=== PATIENT | female | born 1955 | race Caucasian/White ===

== ENCOUNTER 2018-06-24 05:31 | Inpatient (IN) | payer BC, MEDICARE ==
[2018-06-24] VITALS (19 sets, daily range): BP systolic 129–178; BP diastolic 62–79
[~2018-06-24] VITALS: Ht 175.3 cm; Wt 79.0 kg
[2018-06-24] MEDS ORDERED: diphenhydrAMINE 25mg capsule PO PRN (06:10)
[2018-06-24] MEDS ORDERED: LIDOcaine/PRILOcaine 5gm cream TP ONE (06:10)
[2018-06-24] MEDS ORDERED: normal saline 1000ml 1,000 ML IV SCH (06:10)
[2018-06-24] MEDS ORDERED: LORazepam 0.5 MG tablet PO PRN (06:10)
[2018-06-24] MEDS ORDERED: iohexol 350MG/ML 100ml bottle IV ONE (06:14)
[2018-06-24] MEDS ORDERED: LIDOcaine 1% (10mg/ml)w/preservative injection 20ml MDV ONE (06:14)
[2018-06-24] MEDS ORDERED: ROSU40TA PO (06:29)
[2018-06-24] MEDS ORDERED: LEVO75TA PO (06:29)
[2018-06-24] MEDS ORDERED: CITA20TA19 PO (06:29)
[2018-06-24] MEDS ORDERED: GLIP5TAB26 PO (06:29)
[2018-06-24] MEDS ORDERED: ASPI-1265 PO (06:29)
[2018-06-24] MEDS ORDERED: CARV3.122 PO (06:29)
[2018-06-24] MEDS ORDERED: CYA500T PO (06:29)
[2018-06-24] MEDS ORDERED: BIOT1TAB7 PO (06:29)
[2018-06-24] MEDS ORDERED: FURO-150 PO (06:29)
[2018-06-24] MEDS ORDERED: NITR0.4T51 SL (06:29)
[2018-06-24] MEDS ORDERED: INSU100V12 SQ (06:29)
[2018-06-24] MEDS ORDERED: ALPR-624 PO (06:29)
[2018-06-24] MEDS ORDERED: CLOP75TA15 PO (06:29)
[2018-06-24] MEDS ORDERED: OMEG1CAP2 PO (06:29)
[2018-06-24] MEDS ORDERED: midazolam 2 mg/2 ml injection ONE ×2 (06:31→06:37)
[2018-06-24] MEDS ORDERED: verapamil 2.5 mg/ml inj IV ONE (06:31)
[2018-06-24] MEDS ORDERED: nitroGLYCERIN-Tridil 50MG/D5W 250 ML IV ONE (06:31)
[2018-06-24] MEDS ORDERED: fentaNYL/PF 50MCG/1 ML 2ML syringe ONE (06:31)
[2018-06-24] MEDS ORDERED: heparin 1,000unit/ml 10ml vial 10 ML ONE (06:32)
[2018-06-24] MEDS ORDERED: proCHLORperazine 10 MG/2 ml inj IV PRN (07:25)
[2018-06-24] MEDS ORDERED: OXAZEpam 15mg capsule PO PRN (07:25)
[2018-06-24] MEDS ORDERED: ondansetron/PF 4mg/2ml inj IV PRN (07:25)
[2018-06-24] MEDS ORDERED: HYDROcodone/acetaminophen 10/325mg tab PO PRN (07:25)
[2018-06-24] MEDS ORDERED: HYDROcodone/acetaminophen 5mg/325mg tablet PO PRN ×2 (07:25→17:05)
[2018-06-24] MEDS ORDERED: nitroGLYCERIN 0.4mg SUBLingual tab SL PRN (07:30)
[2018-06-24] MEDS ORDERED: ALPRAZolam 0.5mg tablet PO PRN (07:30)
[2018-06-24] MEDS ORDERED: cyanocobalamin 500mcg tablet PO SCH (08:00)
[2018-06-24] MEDS ORDERED: non-formulary drug (Omega-3 Fatty Acids/Fish Oil (Fish Oil 1,000 mg Capsule) 1 CAP) PO SCH (08:00)
[2018-06-24] MEDS ORDERED: glimepiride 1 MG tablet PO SCH (08:00)
[2018-06-24] MEDS ORDERED: citalopram 20mg tablet PO SCH (08:00)
[2018-06-24] MEDS: carVEDilol 3.125mg tablet PO SCH ×2 (08:00→21:31)
[2018-06-24] MEDS ORDERED: furosemide 20MG tablet PO SCH (08:00)
[2018-06-24] MEDS ORDERED: aspirin 81mg tab.chew PO SCH (08:00)
[2018-06-24] MEDS ORDERED: acetaminophen 325mg tablet PO PRN (11:35)
[2018-06-24] MEDS ORDERED: MESSAGE TO NURSING PO ONE ×5 (17:00→17:22)
[2018-06-24] MEDS ORDERED: dextrose 50%-water 50ml dispensing syringe IV PRN (17:00)
[2018-06-24] MEDS ORDERED: insulin Lispro (HumaLOG) vial - multi-dose SQ SCH (18:00)
[2018-06-24] MEDS ORDERED: mupirocin 2% nasal ointment 1gm UD NS SCH (20:00)
[2018-06-24] MEDS ORDERED: metoprolol tartrate 12.5mg (1/2 tablet) PO SCH (20:00)
[2018-06-24 20:35] LABS: HEMATOCRIT 40.2 % (35.0-45.0); HEMOGLOBIN 13.3 g/dl (12.0-16.0); MEAN CORPUSCULAR HEMOGLOBIN 29.7 PG (27.0-31.0); MEAN CORPUSCULAR HGB CONC 33.2 % (33.0-36.5); MEAN CORPUSCULAR VOLUME 89.4 FL (78-98); MEAN PLATELET VOLUME 8.6 FL (7.4-10.4); PLATELET COUNT 181 X10'3 (140-440); RED BLOOD COUNT 4.49 X10'6 (4.20-5.60); RED CELL DISTRIBUTION WIDTH 13.8 % (11.5-14.5); WHITE BLOOD COUNT 6.6 X10'3 (4.5-11.0)
[2018-06-24 20:37] LABS: ANION GAP 7 (8-16); BLOOD UREA NITROGEN 17 MG/DL (7-18); BUN/CREATININE RATIO 13.5 (6.6-38.0); CALCIUM 8.5 MG/DL (8.5-10.1); CHLORIDE 102 MMOL/L (99-107); CREATININE 1.26 MG/DL (0.40-0.90); GLUCOSE 241 MG/DL (70-104); SODIUM 141 MMOL/L (135-145); eGFR 43 ML/MIN
[2018-06-24 20:53] LABS: HEMOGLOBIN A1C 8.6 % (4.5-6.2)
[2018-06-24 20:55] LABS: INR 1.1 INR; PARTIAL THROMBOPLASTIN TIME 24 SECONDS (22-32)
[2018-06-24] MEDS ORDERED: insulin glargine (Lantus) pen - multi-dose SQ SCH (21:00)
[2018-06-24] MEDS ORDERED: atorvastatin 20mg tablet PO SCH (21:00)
[2018-06-24] MEDS ORDERED: insulin glargine (Lantus) pen - multi-dose SQ ONE (21:00)
[2018-06-24] MEDS ORDERED: potassium Cl 20 mEq SR tablet PO STA (21:01)
[2018-06-24] MEDS: levoTHYROXINE 75mcg tablet PO SCH (21:52)
[2018-06-24 23:01] LABS: ABG HCO3 30.1 mmol/L (22.0-26.0); ABG OXYGEN SATURATION 95.5 % (95-98); ABG PCO2 (T) 45.8 mmHg (32.0-45.0); ABG PH (T) 7.435 (7.350-7.450); ABG PO2 (T) 76.3 mmHg (83-108); ALLEN'S TEST Positive; FCOHb 0.1 % (0.5-1.5); FMetHb 0.2 % (0.3-1.12); FO2Hb 95.2 % (94-100); RESPIRATORY RATE (OBSERVED) 16 b/min; TOTAL HEMOGLOBIN 13.7 G/dl (12.0-16.0)
[2018-06-24 23:13] LABS: CLARITY,URINE CLEAR (Clear); COLOR,URINE YELLOW (Yellow); GLUCOSE, URINE 500 mg/dl (Neg); KETONES,URINE NEGATIVE (Neg); LEUKOCYTE ESTERASE ,URINE NEGATIVE (Neg); NITRITES, URINE NEGATIVE (Neg); OCCULT BLOOD,URINE NEGATIVE (Neg); PROTEIN,URINE NEGATIVE (Neg); UROBILINOGEN,URINE 0.2 E.U/dL (0.2-1.0)
[2018-06-24 23:50] LABS: UA COLLECTION TYPE NON-SPECIFIED
[2018-06-25] VITALS (17 sets, daily range): BP systolic 95–141; BP diastolic 41–67
[2018-06-25] MEDS ORDERED: cefazolin/dext.iso 2gm/100ml 100 ML IV ONE (04:30)
[2018-06-25] MEDS ORDERED: vancomycin/NS 1 GM ADD-VANTAGE 250 ML IV ONE (05:30)
[2018-06-25] MEDS ORDERED: cefazolin/dext.iso 2gm/50ml 50 ML IV ONE (05:30)
[2018-06-25] MEDS ORDERED: insulin regular, human inj. 100 UNITS in normal saline 100ml IV soln 100 ML IV SCH ×2 (05:30)
[2018-06-25] MEDS ORDERED: LORazepam 2 mg/ml vial IV ONE (06:00)
[2018-06-25] MEDS ORDERED: famotidine 20mg tablet PO ONE (06:00)
[2018-06-25 06:01] LABS: BASOPHILS % (AUTO) 0.4 % (0-1); EOSINOPHILS # (AUTO) 0.2 X10'3 (0-0.9); EOSINOPHILS % (AUTO) 2.6 % (0-6); HEMATOCRIT 40.7 % (35.0-45.0); HEMOGLOBIN 13.5 g/dl (12.0-16.0); LYMPHOCYTES # (AUTO) 3.1 X10'3 (1.1-4.8); LYMPHOCYTES % (AUTO) 40.1 % (21-51); MEAN CORPUSCULAR HEMOGLOBIN 29.6 PG (27.0-31.0); MEAN CORPUSCULAR HGB CONC 33.2 % (33.0-36.5); MEAN CORPUSCULAR VOLUME 89.2 FL (78-98); MEAN PLATELET VOLUME 8.7 FL (7.4-10.4); MONOCYTES # (AUTO) 0.6 X10'3 (0-0.9); MONOCYTES % (AUTO) 7.3 % (2-12); NEUTROPHILS # (AUTO) 3.9 X10'3 (1.8-7.7); NEUTROPHILS % (AUTO) 49.6 % (42-75); PLATELET COUNT 175 X10'3 (140-440); RED BLOOD COUNT 4.56 X10'6 (4.20-5.60); RED CELL DISTRIBUTION WIDTH 13.9 % (11.5-14.5); WHITE BLOOD COUNT 7.8 X10'3 (4.5-11.0)
[2018-06-25] MEDS ORDERED: heparin 10,000 units/1 ML INJ IR ONE ×2 (06:15→07:00)
[2018-06-25 06:18] LABS: INR 1.1 INR; PROTHROMBIN TIME 10.8 SECONDS (9.0-12.0)
[2018-06-25 06:26] LABS: ANION GAP 3 (8-16); BLOOD UREA NITROGEN 14 MG/DL (7-18); BUN/CREATININE RATIO 17.1 (6.6-38.0); CALCIUM 8.5 MG/DL (8.5-10.1); CHLORIDE 107 MMOL/L (99-107); CREATININE 0.82 MG/DL (0.40-0.90); GLUCOSE 216 MG/DL (70-104); POTASSIUM 4.1 MMOL/L (3.5-5.1); SODIUM 142 MMOL/L (135-145); TOTAL CARBON DIOXIDE 31.6 MMOL/L (24-32); eGFR 70 ML/MIN
[2018-06-25] MEDS ORDERED: nitroGLYCERIN in D5W 50mg/250ml (Tridil) infusion IV ONE (06:50)
[2018-06-25] MEDS ORDERED: aminocaproic acid 250 MG/1 ML inj. ONE ×2 (06:50→09:00)
[2018-06-25] MEDS ORDERED: SUFENTANIL CITRATE 50 MCG/ML 2ml ampule IV ONE (06:54)
[2018-06-25] MEDS ORDERED: LORazepam 2 mg/ml vial ONE (06:57)
[2018-06-25] MEDS ORDERED: papaverine 30 mg/ml 2ml inj. IA ONE (07:00)
[2018-06-25] MEDS ORDERED: pancuronium br 1mg/ml inj IV ONE (07:00)
[2018-06-25] MEDS ORDERED: rocuronium 10mg/ml inj IV ONE (07:00)
[2018-06-25] MEDS ORDERED: LIDOcaine 2% (20mg/ml) 5ml vial ONE (07:00)
[2018-06-25 07:51] LABS: ABG BASE EXCESS 1.6 mmol/L (-2.0-3.0); ABG HCO3 25.3 mmol/L (22.0-26.0); ABG OXYGEN SATURATION 99.2 % (95-98); ABG PCO2 36.7 mmHg (35.0-45.0); ABG PH 7.457 (7.350-7.450); ABG PO2 198.6 mmHg (60.0-100.0); CL (ABG) 108 mmol/L (99-107); FCOHb 0.5 % (0.5-1.5); FMetHb 0.2 % (0.3-1.12); FO2Hb 98.5 % (94-100); GLUCOSE (ABG) 194 mg/dl (70-105); IONIZED CA (ABG) 1.12 mmol/L (1.03-1.32); K (ABG) 3.8 mmol/L (3.3-5.1); NA (ABG) 136 mmol/L (135-145); TOTAL HEMOGLOBIN 12.4 G/dl (12.0-16.0)
[2018-06-25] MEDS: levoTHYROXINE 75mcg tablet PO SCH (08:00)
[2018-06-25 08:35] LABS: PATIENT WEIGHT 74.0k KG
[2018-06-25 08:36] LABS: ACT @ 1.70 U 323 SEC (193-297); ACT @ 2.84 U 435 SEC (260-420); BASELINE ACT 129 SEC (101-148)
[2018-06-25 08:41] LABS: ABG BASE EXCESS 2.5 mmol/L (-2.0-3.0); ABG HCO3 26.8 mmol/L (22.0-26.0); ABG PCO2 40.3 mmHg (35.0-45.0); ABG PH 7.441 (7.350-7.450); ABG PO2 566.4 mmHg (60.0-100.0); CL (ABG) 105 mmol/L (99-107); FCOHb 0.2 % (0.5-1.5); FMetHb 0.4 % (0.3-1.12); FO2Hb 98.4 % (94-100); GLUCOSE (ABG) 111 mg/dl (70-105); IONIZED CA (ABG) 0.93 mmol/L (1.03-1.32); K (ABG) 3.8 mmol/L (3.3-5.1); NA (ABG) 135 mmol/L (135-145); TOTAL HEMOGLOBIN 10.3 G/dl (12.0-16.0)
[2018-06-25] MEDS ORDERED: insulin Lispro (HumaLOG) vial - multi-dose SQ SCH (09:00)
[2018-06-25] MEDS ORDERED: magnesium sulf 1 GM/2 ML ONE (09:00)
[2018-06-25] MEDS ORDERED: LIDOcaine 2% (20 mg/ml) 5ml cardiac syringe ONE (09:00)
[2018-06-25] MEDS ORDERED: albumin (human) 25% 100 ML IV solution IV ONE (09:00)
[2018-06-25] MEDS ORDERED: heparin 1,000 units/ml 10ml inj ONE ×2 (09:00)
[2018-06-25] MEDS ORDERED: papaverine 30 mg/ml 2ml inj. ONE (09:00)
[2018-06-25] MEDS ORDERED: potassium Cl 2 mEq/ml inj IV ONE (09:00)
[2018-06-25] MEDS ORDERED: phenylephrine 10mg/ml inj. ONE (09:00)
[2018-06-25] MEDS ORDERED: methylPREDNISolone sod succ 1000mg vial ONE (09:00)
[2018-06-25] MEDS ORDERED: heparin 10,000 units/1 ML INJ ONE (09:00)
[2018-06-25] MEDS ORDERED: sodium bicarbonate (8.4%) 1 mEq/ml syringe ONE (09:00)
[2018-06-25] MEDS ORDERED: calcium chloride 100 MG/1 ML inj IV ONE (09:00)
[2018-06-25 09:11] LABS: ABG BASE EXCESS VENOUS 2.1 mmol/L; ABG HCO3 VENOUS 26.6 mmol/L; ABG PCO2 VENOUS 40.8 mmHg; ABG PO2 VENOUS 41.4 mmHg; CL (ABG) 108 mmol/L (99-107); FCOHb VENOUS 0.3 %; FHHb VENOUS 17.7 %; FMetHb VENOUS 0.4 %; FO2Hb VENOUS 81.6 %; GLUCOSE (ABG) 99 mg/dl (70-105); IONIZED CA (ABG) 0.96 mmol/L (1.03-1.32); K (ABG) 4.8 mmol/L (3.3-5.1); NA (ABG) 136 mmol/L (135-145); TOTAL HEMOGLOBIN 9.3 G/dl (12.0-16.0)
[2018-06-25 10:05] LABS: ABG HCO3 24.4 mmol/L (22.0-26.0); ABG OXYGEN SATURATION 98.9 % (95-98); ABG PCO2 33.7 mmHg (35.0-45.0); ABG PH 7.477 (7.350-7.450); CL (ABG) 110 mmol/L (99-107); FCOHb 0.3 % (0.5-1.5); FMetHb 0.7 % (0.3-1.12); FO2Hb 97.9 % (94-100); GLUCOSE (ABG) 89 mg/dl (70-105); IONIZED CA (ABG) 1.17 mmol/L (1.03-1.32); K (ABG) 4.1 mmol/L (3.3-5.1); NA (ABG) 136 mmol/L (135-145); TOTAL HEMOGLOBIN 8.6 G/dl (12.0-16.0)
[2018-06-25] MEDS ORDERED: nitroGLYCERIN-Tridil 50MG/D5W 250 ML IV PRN (10:41)
[2018-06-25] MEDS: sodium chloride 0.45% 1,000 ML IV SCH (10:41)
[2018-06-25] MEDS ORDERED: DOPamine 400mg/D5W 250ml 250 ML IV PRN (10:41)
[2018-06-25 10:42] LABS: BASOPHILS % (AUTO) 0.1 % (0-1); EOSINOPHILS # (AUTO) 0.1 X10'3 (0-0.9); EOSINOPHILS % (AUTO) 1.7 % (0-6); HEMATOCRIT 28.2 % (35.0-45.0); HEMOGLOBIN 9.6 g/dl (12.0-16.0); LYMPHOCYTES % (AUTO) 13.5 % (21-51); MEAN CORPUSCULAR HEMOGLOBIN 30.1 PG (27.0-31.0); MEAN CORPUSCULAR VOLUME 88.5 FL (78-98); MONOCYTES # (AUTO) 0.4 X10'3 (0-0.9); MONOCYTES % (AUTO) 4.9 % (2-12); NEUTROPHILS # (AUTO) 6.1 X10'3 (1.8-7.7); NEUTROPHILS % (AUTO) 79.8 % (42-75); PLATELET COUNT 94 X10'3 (140-440); RED BLOOD COUNT 3.18 X10'6 (4.20-5.60); RED CELL DISTRIBUTION WIDTH 13.6 % (11.5-14.5); WHITE BLOOD COUNT 7.7 X10'3 (4.5-11.0)
[2018-06-25] MEDS: insulin regular, human inj. 100 UNITS in normal saline 100ml IV soln 100 ML IV SCH ×4 (10:45→21:05)
[2018-06-25] MEDS ORDERED: sodium phosphate inj. 15 MMOL in dextrose 5%-water 150 ML IV PRN (10:45)
[2018-06-25] MEDS ORDERED: magnesium 4gm in 100ml NS 100 ML IV PRN (10:45)
[2018-06-25] MEDS ORDERED: morphine 4 MG/ML inj SYRINge IV PRN (10:45)
[2018-06-25] MEDS ORDERED: dextrose 50%-water 50ml dispensing syringe IV PRN (10:45)
[2018-06-25] MEDS ORDERED: Neutra Phos packet PO PRN (10:45)
[2018-06-25] MEDS ORDERED: normal saline 250ml IV soln 250 ML IV PRN (10:45)
[2018-06-25] MEDS ORDERED: sodium phosphate inj. 30 MMOL in dextrose 5%-water 250 ML IV PRN (10:45)
[2018-06-25] MEDS ORDERED: pantoprazole 40 MG vial IV ONE (10:45)
[2018-06-25] MEDS ORDERED: metoclopramide 5 mg/ml inj IV PRN (10:45)
[2018-06-25] MEDS ORDERED: potassium Cl 20mEq/100mL bag 100 ML IV PRN ×2 (10:45)
[2018-06-25] MEDS ORDERED: magnesium hydroxide 30ml (MOM) UD suspension PO PRN (10:45)
[2018-06-25 10:56] LABS: ALANINE AMINOTRANSFERASE 20 U/L (12-78); ALBUMIN 2.3 G/DL (3.4-5.0); ALBUMIN/GLOBULIN RATIO 1.3 (1.1-1.5); ALKALINE PHOSPHATASE 38 IU/L (46-116); ANION GAP 8 (8-16); ASPARTATE AMINO TRANSFERASE 35 U/L (10-37); BILIRUBIN,TOTAL 0.5 MG/DL (0.1-1.0); BLOOD UREA NITROGEN 11 MG/DL (7-18); BUN/CREATININE RATIO 14.5 (6.6-38.0); CALCIUM 7.9 MG/DL (8.5-10.1); CHLORIDE 110 MMOL/L (99-107); CREATININE 0.76 MG/DL (0.40-0.90); GLUCOSE 131 MG/DL (70-104); POTASSIUM 4.2 MMOL/L (3.5-5.1); SODIUM 144 MMOL/L (135-145); TOTAL PROTEIN 4.1 G/DL (6.4-8.2); eGFR 76 ML/MIN
[2018-06-25] MEDS ORDERED: albuterol 2.5 MG/3 ML nebule NEB SCH (11:00)
[2018-06-25 11:09] LABS: INR 1.4 INR; PARTIAL THROMBOPLASTIN TIME 30 SECONDS (22-32); PROTHROMBIN TIME 14.1 SECONDS (9.0-12.0)
[2018-06-25 11:10] LABS: ABG BASE EXCESS 0.8 mmol/L (-2.0-3.0); ABG HCO3 24.3 mmol/L (22.0-26.0); ABG OXYGEN SATURATION 98.4 % (95-98); ABG PCO2 (T) 34.1 mmHg (32.0-45.0); ABG PH (T) 7.469 (7.350-7.450); ABG PO2 (T) 171.4 mmHg (83-108); FCOHb 0.2 % (0.5-1.5); FMetHb 0.3 % (0.3-1.12); FO2Hb 97.9 % (94-100); MINUTE VOLUME 7 L/min; PATIENT TEMPERATURE 36.6; PEEP 5 cm H2O; RESPIRATORY RATE 12 b/min; RESPIRATORY RATE (OBSERVED) 12 b/min; TIDAL VOLUME 500 mL; TOTAL HEMOGLOBIN 10.7 G/dl (12.0-16.0)
[2018-06-25] MEDS: albumin (Human) 5% 250ml 250 ML IV PRN ×3 (11:23→15:16)
[2018-06-25] MEDS: niCARDipine-NS 40mg/200ml IVPB 200 ML IV PRN ×2 (11:27→13:47)
[2018-06-25] MEDS ORDERED: isoflurane 100ml inhalation liquid IH ONE (11:30)
[2018-06-25] MEDS ORDERED: midazolam 2 mg/2 ml injection ONE (11:45)
[2018-06-25] MEDS ORDERED: NORMAL SALINE IV ONE (11:45)
[2018-06-25] MEDS ORDERED: DESMOPRESSIN IV ONE (11:45)
[2018-06-25] MEDS ORDERED: fentaNYL /PF 50mcg/ml 5ml ampule ONE (11:46)
[2018-06-25 12:15] LABS: ABG BASE EXCESS 0.7 mmol/L (-2.0-3.0); ABG HCO3 25.5 mmol/L (22.0-26.0); ABG OXYGEN SATURATION 99.7 % (95-98); ABG PH 7.402 (7.350-7.450); ABG PO2 253.8 mmHg (60.0-100.0); CL (ABG) 114 mmol/L (99-107); FMetHb 0.3 % (0.3-1.12); FO2Hb 98.4 % (94-100); GLUCOSE (ABG) 243 mg/dl (70-105); IONIZED CA (ABG) 1.02 mmol/L (1.03-1.32); K (ABG) 3.6 mmol/L (3.3-5.1); NA (ABG) 139 mmol/L (135-145); TOTAL HEMOGLOBIN 8.1 G/dl (12.0-16.0)
[2018-06-25] MEDS: insulin Lispro (HumaLOG) vial - multi-dose SQ SCH ×2 (13:00→18:00)
[2018-06-25 13:31] LABS: ACTIVATED CLOTTING TIME 147 SEC (101-148)
[2018-06-25] MEDS: morphine 4 MG/ML inj SYRINge IV PRN ×4 (13:37→22:10)
[2018-06-25 13:38] LABS: BASOPHILS % (AUTO) 0 % (0-1); EOSINOPHILS # (AUTO) 0.1 X10'3 (0-0.9); LYMPHOCYTES # (AUTO) 0.8 X10'3 (1.1-4.8); LYMPHOCYTES % (AUTO) 8.4 % (21-51); MEAN CORPUSCULAR HEMOGLOBIN 30.5 PG (27.0-31.0); MEAN CORPUSCULAR HGB CONC 34.2 % (33.0-36.5); MEAN CORPUSCULAR VOLUME 89.1 FL (78-98); MEAN PLATELET VOLUME 8.2 FL (7.4-10.4); MONOCYTES # (AUTO) 0.3 X10'3 (0-0.9); MONOCYTES % (AUTO) 3.3 % (2-12); NEUTROPHILS # (AUTO) 7.9 X10'3 (1.8-7.7); NEUTROPHILS % (AUTO) 87.3 % (42-75); PLATELET COUNT 84 X10'3 (140-440); RED BLOOD COUNT 2.25 X10'6 (4.20-5.60); RED CELL DISTRIBUTION WIDTH 13.4 % (11.5-14.5); WHITE BLOOD COUNT 9.1 X10'3 (4.5-11.0)
[2018-06-25 13:51] LABS: HEMOGLOBIN 6.9 g/dl (12.0-16.0)
[2018-06-25 13:55] LABS: INR 1.3 INR; PARTIAL THROMBOPLASTIN TIME 27 SECONDS (22-32); PROTHROMBIN TIME 12.7 SECONDS (9.0-12.0)
[2018-06-25 14:00] LABS: ALANINE AMINOTRANSFERASE 19 U/L (12-78); ALBUMIN 2.6 G/DL (3.4-5.0); ALBUMIN/GLOBULIN RATIO 1.5 (1.1-1.5); ALKALINE PHOSPHATASE 32 IU/L (46-116); ANION GAP 7 (8-16); ASPARTATE AMINO TRANSFERASE 28 U/L (10-37); BILIRUBIN,TOTAL 0.6 MG/DL (0.1-1.0); BLOOD UREA NITROGEN 11 MG/DL (7-18); BUN/CREATININE RATIO 13.9 (6.6-38.0); CALCIUM 7.4 MG/DL (8.5-10.1); CHLORIDE 114 MMOL/L (99-107); CREATININE 0.79 MG/DL (0.40-0.90); GLUCOSE 194 MG/DL (70-104); MAGNESIUM 2.3 MG/DL (1.5-2.4); POTASSIUM 3.1 MMOL/L (3.5-5.1); SODIUM 147 MMOL/L (135-145); TOTAL CARBON DIOXIDE 25.6 MMOL/L (24-32); TOTAL PROTEIN 4.3 G/DL (6.4-8.2); eGFR 73 ML/MIN
[2018-06-25] MEDS ORDERED: potassium phosphate inj 30 MMOL in dextrose 5%-water 250 ML IV PRN (14:11)
[2018-06-25] MEDS ORDERED: potassium phosphate inj 15 MMOL in dextrose 5%-water 150 ML IV PRN (14:11)
[2018-06-25] MEDS: ceFAZolin 1GM/D5W- ADD-VANTAGE 50 ML IV SCH ×2 (16:51→23:11)
[2018-06-25] MEDS: docusate sod 100mg capsule PO SCH (18:39)
[2018-06-25] MEDS: vancomycin/NS 1 GM ADD-VANTAGE 250 ML IV SCH (19:39)
[2018-06-25] MEDS: mupirocin 2% nasal ointment 1gm UD NS SCH (19:39)
[2018-06-25 19:45] LABS: BASOPHILS % (AUTO) 0 % (0-1); EOSINOPHILS # (AUTO) 0.1 X10'3 (0-0.9); HEMOGLOBIN 7.4 g/dl (12.0-16.0); LYMPHOCYTES # (AUTO) 0.7 X10'3 (1.1-4.8); LYMPHOCYTES % (AUTO) 5.6 % (21-51); MEAN CORPUSCULAR HEMOGLOBIN 30.1 PG (27.0-31.0); MEAN CORPUSCULAR VOLUME 88.6 FL (78-98); MEAN PLATELET VOLUME 8.4 FL (7.4-10.4); MONOCYTES # (AUTO) 0.4 X10'3 (0-0.9); MONOCYTES % (AUTO) 2.9 % (2-12); NEUTROPHILS # (AUTO) 11.2 X10'3 (1.8-7.7); NEUTROPHILS % (AUTO) 90.5 % (42-75); PLATELET COUNT 92 X10'3 (140-440); RED BLOOD COUNT 2.47 X10'6 (4.20-5.60); RED CELL DISTRIBUTION WIDTH 14.1 % (11.5-14.5); WHITE BLOOD COUNT 12.3 X10'3 (4.5-11.0)
[2018-06-25 19:53] LABS: ALBUMIN 3.3 G/DL (3.4-5.0); ANION GAP 7 (8-16); BLOOD UREA NITROGEN 12 MG/DL (7-18); CALCIUM 7.9 MG/DL (8.5-10.1); CHLORIDE 114 MMOL/L (99-107); GLUCOSE 148 MG/DL (70-104); MAGNESIUM 2.2 MG/DL (1.5-2.4); PHOSPHORUS 2.6 MG/DL (2.3-4.5); POTASSIUM 3.4 MMOL/L (3.5-5.1); SODIUM 148 MMOL/L (135-145); TOTAL CARBON DIOXIDE 27.1 MMOL/L (24-32); eGFR 72 ML/MIN
[2018-06-25 20:00] LABS: HEMATOCRIT 21.9 % (35.0-45.0)
[2018-06-25] MEDS: magnesium 1gm/100ml D5W IVPB 100 ML IV PRN (21:41)
[2018-06-26] VITALS (24 sets, daily range): BP systolic 120–144; BP diastolic 39–60
[2018-06-26] MEDS: morphine 4 MG/ML inj SYRINge IV PRN ×3 (00:11→02:11)
[2018-06-26 00:20] LABS: BASOPHILS % (AUTO) 0 % (0-1); EOSINOPHILS # (AUTO) 0.2 X10'3 (0-0.9); EOSINOPHILS % (AUTO) 1.7 % (0-6); HEMOGLOBIN 7.1 g/dl (12.0-16.0); LYMPHOCYTES # (AUTO) 0.9 X10'3 (1.1-4.8); LYMPHOCYTES % (AUTO) 7.5 % (21-51); MEAN CORPUSCULAR HEMOGLOBIN 30.1 PG (27.0-31.0); MEAN CORPUSCULAR HGB CONC 33.6 % (33.0-36.5); MEAN CORPUSCULAR VOLUME 89.6 FL (78-98); MEAN PLATELET VOLUME 8.6 FL (7.4-10.4); MONOCYTES # (AUTO) 0.5 X10'3 (0-0.9); NEUTROPHILS # (AUTO) 10.5 X10'3 (1.8-7.7); NEUTROPHILS % (AUTO) 86.8 % (42-75); PLATELET COUNT 93 X10'3 (140-440); RED BLOOD COUNT 2.34 X10'6 (4.20-5.60); RED CELL DISTRIBUTION WIDTH 13.6 % (11.5-14.5); WHITE BLOOD COUNT 12.1 X10'3 (4.5-11.0)
[2018-06-26 00:40] LABS: INR 1.1 INR; PARTIAL THROMBOPLASTIN TIME 23 SECONDS (22-32)
[2018-06-26 00:41] LABS: ALANINE AMINOTRANSFERASE 19 U/L (12-78); ALBUMIN 3.1 G/DL (3.4-5.0); ALBUMIN/GLOBULIN RATIO 1.6 (1.1-1.5); ALKALINE PHOSPHATASE 36 IU/L (46-116); ANION GAP 6 (8-16); ASPARTATE AMINO TRANSFERASE 27 U/L (10-37); BILIRUBIN,TOTAL 0.4 MG/DL (0.1-1.0); BLOOD UREA NITROGEN 11 MG/DL (7-18); BUN/CREATININE RATIO 15.7 (6.6-38.0); CALCIUM 7.9 MG/DL (8.5-10.1); CHLORIDE 112 MMOL/L (99-107); GLUCOSE 119 MG/DL (70-104); MAGNESIUM 2.7 MG/DL (1.5-2.4); PHOSPHORUS 3.4 MG/DL (2.3-4.5); POTASSIUM 3.3 MMOL/L (3.5-5.1); SODIUM 147 MMOL/L (135-145); TOTAL CARBON DIOXIDE 28.9 MMOL/L (24-32); TOTAL PROTEIN 5.1 G/DL (6.4-8.2); eGFR 84 ML/MIN
[2018-06-26] MEDS: potassium Cl 20mEq/100mL bag 100 ML IV PRN ×5 (00:56→08:49)
[2018-06-26 04:55] LABS: ABG HCO3 26.6 mmol/L (22.0-26.0); ABG OXYGEN SATURATION 95.8 % (95-98); ABG PCO2 (T) 48.7 mmHg (32.0-45.0); ABG PH (T) 7.357 (7.350-7.450); ABG PO2 (T) 85.6 mmHg (83-108); FCOHb 0.3 % (0.5-1.5); FMetHb 0.4 % (0.3-1.12); FO2Hb 95.1 % (94-100); MINUTE VOLUME 5 L/min; PATIENT TEMPERATURE 37.4; PEEP 5 cm H2O; RESPIRATORY RATE (OBSERVED) 9 b/min; TOTAL HEMOGLOBIN 7.7 G/dl (12.0-16.0)
[2018-06-26] MEDS ORDERED: furosemide 40mg/4ml inj IV ONE (06:00)
[2018-06-26] MEDS ORDERED: furosemide 40mg/4ml inj ONE (06:05)
[2018-06-26] MEDS ORDERED: atorvastatin 10mg tablet PO SCH (08:00)
[2018-06-26] MEDS ORDERED: aspirin 325mg tablet, delayed-release (Ecotrin) PO SCH (08:00)
[2018-06-26] MEDS ORDERED: metoprolol tartrate 12.5mg (1/2 tablet) PO SCH (08:00)
[2018-06-26] MEDS: vancomycin/NS 1 GM ADD-VANTAGE 250 ML IV SCH ×2 (08:07→19:01)
[2018-06-26] MEDS: ceFAZolin 1GM/D5W- ADD-VANTAGE 50 ML IV SCH ×3 (08:07→23:56)
[2018-06-26] MEDS: ondansetron/PF 4mg/2ml inj IV PRN (08:46)
[2018-06-26] MEDS: insulin Lispro (HumaLOG) vial - multi-dose SQ SCH ×3 (09:00→18:00)
[2018-06-26] MEDS: HYDROcodone/acetaminophen 10/325mg tab PO PRN ×2 (09:57→19:00)
[2018-06-26] MEDS: lisinopril 5mg tablet PO SCH (09:58)
[2018-06-26] MEDS: atorvastatin 20mg tablet PO SCH (09:58)
[2018-06-26] MEDS: docusate sod 100mg capsule PO SCH ×2 (09:58→18:59)
[2018-06-26] MEDS: aspirin 81mg tablet.DR PO SCH (09:58)
[2018-06-26] MEDS: levoTHYROXINE 75mcg tablet PO SCH (09:59)
[2018-06-26] MEDS: mupirocin 2% nasal ointment 1gm UD NS SCH ×2 (09:59→19:09)
[2018-06-26] MEDS: carVEDilol 3.125mg tablet PO SCH ×2 (09:59→18:59)
[2018-06-26] MEDS: insulin regular, human inj. 100 UNITS in normal saline 100ml IV soln 100 ML IV SCH ×2 (18:26)
[2018-06-27] VITALS (28 sets, daily range): BP systolic 100–150; BP diastolic 46–64
[2018-06-27] MEDS: HYDROcodone/acetaminophen 10/325mg tab PO PRN ×3 (00:38→19:04)
[2018-06-27 03:05] LABS: BASOPHILS % (AUTO) 0 % (0-1); EOSINOPHILS % (AUTO) 0 % (0-6); LYMPHOCYTES # (AUTO) 2.4 X10'3 (1.1-4.8); LYMPHOCYTES % (AUTO) 13.3 % (21-51); MEAN CORPUSCULAR HEMOGLOBIN 29.9 PG (27.0-31.0); MEAN CORPUSCULAR HGB CONC 33.4 % (33.0-36.5); MEAN CORPUSCULAR VOLUME 89.6 FL (78-98); MONOCYTES # (AUTO) 1.1 X10'3 (0-0.9); MONOCYTES % (AUTO) 6.4 % (2-12); NEUTROPHILS # (AUTO) 14.3 X10'3 (1.8-7.7); NEUTROPHILS % (AUTO) 80.3 % (42-75); PLATELET COUNT 124 X10'3 (140-440); RED BLOOD COUNT 2.18 X10'6 (4.20-5.60); RED CELL DISTRIBUTION WIDTH 14.2 % (11.5-14.5); WHITE BLOOD COUNT 17.8 X10'3 (4.5-11.0)
[2018-06-27 03:10] LABS: HEMATOCRIT 19.5 % (35.0-45.0); HEMOGLOBIN 6.5 g/dl (12.0-16.0)
[2018-06-27 03:33] LABS: ALBUMIN 2.8 G/DL (3.4-5.0); ANION GAP 7 (8-16); BLOOD UREA NITROGEN 18 MG/DL (7-18); BUN/CREATININE RATIO 21.2 (6.6-38.0); CALCIUM 7.8 MG/DL (8.5-10.1); CHLORIDE 104 MMOL/L (99-107); CREATININE 0.85 MG/DL (0.40-0.90); GLUCOSE 142 MG/DL (70-104); MAGNESIUM 2.3 MG/DL (1.5-2.4); PHOSPHORUS 2.4 MG/DL (2.3-4.5); POTASSIUM 4.1 MMOL/L (3.5-5.1); SODIUM 139 MMOL/L (135-145); TOTAL CARBON DIOXIDE 28.3 MMOL/L (24-32); eGFR 67 ML/MIN
[2018-06-27] MEDS: magnesium 1gm/100ml D5W IVPB 100 ML IV PRN ×2 (05:12→06:13)
[2018-06-27] MEDS: aspirin 81mg tablet.DR PO SCH (08:24)
[2018-06-27] MEDS: docusate sod 100mg capsule PO SCH ×2 (08:24→19:06)
[2018-06-27] MEDS: pantoprazole 40mg Tablet.DR PO SCH (08:24)
[2018-06-27] MEDS: atorvastatin 20mg tablet PO SCH (08:24)
[2018-06-27] MEDS: lisinopril 5mg tablet PO SCH (08:25)
[2018-06-27] MEDS: levoTHYROXINE 75mcg tablet PO SCH (08:25)
[2018-06-27] MEDS: mupirocin 2% nasal ointment 1gm UD NS SCH (08:25)
[2018-06-27] MEDS: carVEDilol 3.125mg tablet PO SCH ×2 (08:25→19:07)
[2018-06-27] MEDS: insulin Lispro (HumaLOG) vial - multi-dose SQ SCH ×6 (09:00→20:38)
[2018-06-27] MEDS: sodium chloride 0.45% 1,000 ML IV SCH (10:41)
[2018-06-27] MEDS ORDERED: glucagon, human recombinant 1mg kit SUBCUT PRN (12:30)
[2018-06-27] MEDS ORDERED: dextrose 50%-water 50ml dispensing syringe IV PRN ×2 (12:30)
[2018-06-27] MEDS ORDERED: MESSAGE TO PHARMACY PO ONE (12:30)
[2018-06-27] MEDS ORDERED: dextrose ORAL solution 15 GM/59 ML bottle PO PRN ×2 (12:30)
[2018-06-27 13:06] LABS: HEMOGLOBIN 7.3 g/dl (12.0-16.0); MEAN CORPUSCULAR HGB CONC 33.7 % (33.0-36.5); MEAN CORPUSCULAR VOLUME 88.9 FL (78-98); PLATELET COUNT 100 X10'3 (140-440); RED BLOOD COUNT 2.44 X10'6 (4.20-5.60)
[2018-06-27 13:09] LABS: HEMATOCRIT 21.7 % (35.0-45.0)
[2018-06-27 13:14] LABS: MAGNESIUM 2.3 MG/DL (1.5-2.4); POTASSIUM 4.6 MMOL/L (3.5-5.1)
[2018-06-27] MEDS: Protein Smoothie (high protein) 240ml (8oz) cup PO SCH (18:00)
[2018-06-27] MEDS: insulin glargine (Lantus) pen - multi-dose SQ SCH (20:38)
[2018-06-28] VITALS (24 sets, daily range): BP systolic 97–156; BP diastolic 44–71
[2018-06-28] MEDS: HYDROcodone/acetaminophen 10/325mg tab PO PRN ×4 (02:08→21:06)
[2018-06-28 02:15] LABS: BASOPHILS % (AUTO) 0.2 % (0-1); EOSINOPHILS % (AUTO) 0 % (0-6); LYMPHOCYTES # (AUTO) 2.3 X10'3 (1.1-4.8); LYMPHOCYTES % (AUTO) 21.3 % (21-51); MEAN CORPUSCULAR HEMOGLOBIN 30.3 PG (27.0-31.0); MEAN CORPUSCULAR HGB CONC 34.1 % (33.0-36.5); MEAN CORPUSCULAR VOLUME 88.9 FL (78-98); MEAN PLATELET VOLUME 8.8 FL (7.4-10.4); MONOCYTES # (AUTO) 0.7 X10'3 (0-0.9); MONOCYTES % (AUTO) 6.8 % (2-12); NEUTROPHILS # (AUTO) 7.6 X10'3 (1.8-7.7); NEUTROPHILS % (AUTO) 71.7 % (42-75); PLATELET COUNT 107 X10'3 (140-440); WHITE BLOOD COUNT 10.6 X10'3 (4.5-11.0)
[2018-06-28 02:21] LABS: HEMATOCRIT 20.5 % (35.0-45.0)
[2018-06-28 02:33] LABS: ALBUMIN 2.4 G/DL (3.4-5.0); ANION GAP 2 (8-16); BLOOD UREA NITROGEN 14 MG/DL (7-18); BUN/CREATININE RATIO 20.6 (6.6-38.0); CALCIUM 7.5 MG/DL (8.5-10.1); CHLORIDE 103 MMOL/L (99-107); CREATININE 0.68 MG/DL (0.40-0.90); GLUCOSE 234 MG/DL (70-104); PHOSPHORUS 1.6 MG/DL (2.3-4.5); POTASSIUM 4.1 MMOL/L (3.5-5.1); SODIUM 136 MMOL/L (135-145); eGFR 87 ML/MIN
[2018-06-28] MEDS ORDERED: NORMAL SALINE IV ONE (03:30)
[2018-06-28] MEDS ORDERED: POTASSIUM CL IV ONE (03:30)
[2018-06-28] MEDS: levoTHYROXINE 75mcg tablet PO SCH (08:03)
[2018-06-28] MEDS: docusate sod 100mg capsule PO SCH ×2 (08:03→19:26)
[2018-06-28] MEDS: atorvastatin 20mg tablet PO SCH (08:03)
[2018-06-28] MEDS: aspirin 81mg tablet.DR PO SCH (08:04)
[2018-06-28] MEDS: Protein Smoothie (high protein) 240ml (8oz) cup PO SCH ×3 (08:04→18:30)
[2018-06-28] MEDS: pantoprazole 40mg Tablet.DR PO SCH (08:04)
[2018-06-28] MEDS: carVEDilol 3.125mg tablet PO SCH ×2 (08:04→19:26)
[2018-06-28] MEDS: insulin Lispro (HumaLOG) vial - multi-dose SQ SCH ×5 (09:12→21:10)
[2018-06-28] MEDS: insulin regular, human inj. 100 UNITS in normal saline 100ml IV soln 100 ML IV SCH ×2 (10:45)
[2018-06-28] MEDS: lactose-reduced food (Ensure High Protein) 237ml bottle PO SCH (13:00)
[2018-06-28] MEDS: insulin glargine (Lantus) pen - multi-dose SQ SCH (21:09)
[2018-06-29] VITALS (14 sets, daily range): BP systolic 111–163; BP diastolic 50–79
[2018-06-29] MEDS: HYDROcodone/acetaminophen 10/325mg tab PO PRN ×2 (04:19→10:44)
[2018-06-29 06:53] LABS: BASOPHILS % (AUTO) 0.2 % (0-1); EOSINOPHILS # (AUTO) 0.2 X10'3 (0-0.9); EOSINOPHILS % (AUTO) 2.9 % (0-6); HEMOGLOBIN 7.7 g/dl (12.0-16.0); LYMPHOCYTES # (AUTO) 1.5 X10'3 (1.1-4.8); LYMPHOCYTES % (AUTO) 18.1 % (21-51); MEAN CORPUSCULAR HEMOGLOBIN 30.5 PG (27.0-31.0); MEAN CORPUSCULAR HGB CONC 33.6 % (33.0-36.5); MEAN CORPUSCULAR VOLUME 90.9 FL (78-98); MEAN PLATELET VOLUME 8.9 FL (7.4-10.4); MONOCYTES # (AUTO) 0.6 X10'3 (0-0.9); MONOCYTES % (AUTO) 6.9 % (2-12); NEUTROPHILS % (AUTO) 71.9 % (42-75); PLATELET COUNT 145 X10'3 (140-440); RED BLOOD COUNT 2.54 X10'6 (4.20-5.60); WHITE BLOOD COUNT 8.4 X10'3 (4.5-11.0)
[2018-06-29 07:04] LABS: ALBUMIN 2.5 G/DL (3.4-5.0); ANION GAP 6 (8-16); BLOOD UREA NITROGEN 14 MG/DL (7-18); BUN/CREATININE RATIO 20.3 (6.6-38.0); CALCIUM 7.6 MG/DL (8.5-10.1); CHLORIDE 102 MMOL/L (99-107); CREATININE 0.69 MG/DL (0.40-0.90); GLUCOSE 265 MG/DL (70-104); MAGNESIUM 1.9 MG/DL (1.5-2.4); PHOSPHORUS 1.9 MG/DL (2.3-4.5); SODIUM 138 MMOL/L (135-145); TOTAL CARBON DIOXIDE 29.8 MMOL/L (24-32); eGFR 85 ML/MIN
[2018-06-29] MEDS ORDERED: magnesium 1gm/100ml D5W IVPB 100 ML IV PRN (07:10)
[2018-06-29] MEDS ORDERED: potassium Cl 20 mEq SR tablet PO PRN ×2 (07:10)
[2018-06-29] MEDS ORDERED: magnesium Cl slow-release 64mg tablet PO PRN (07:10)
[2018-06-29] MEDS ORDERED: potassium Cl 40MEQ/NS 500ml 500 ML IV PRN ×2 (07:10)
[2018-06-29] MEDS ORDERED: magnesium 4gm in 100ml NS 100 ML IV PRN (07:10)
[2018-06-29] MEDS ORDERED: magnesium citrate 296ml oral solution PO ONE (07:50)
[2018-06-29] MEDS: pantoprazole 40mg Tablet.DR PO SCH (07:57)
[2018-06-29] MEDS: lactose-reduced food (Ensure High Protein) 237ml bottle PO SCH ×4 (08:00→23:00)
[2018-06-29] MEDS: K and/or MAG REPLACEMENT MC SCH (08:00)
[2018-06-29] MEDS: Protein Smoothie (high protein) 240ml (8oz) cup PO SCH ×3 (08:00→18:00)
[2018-06-29] MEDS: levoTHYROXINE 75mcg tablet PO SCH (09:11)
[2018-06-29] MEDS: carVEDilol 3.125mg tablet PO SCH ×2 (09:11→21:25)
[2018-06-29] MEDS: potassium Cl 20 mEq SR tablet PO SCH ×2 (09:12→21:25)
[2018-06-29] MEDS: aspirin 81mg tablet.DR PO SCH (09:12)
[2018-06-29] MEDS: atorvastatin 20mg tablet PO SCH (09:12)
[2018-06-29] MEDS: docusate sod 100mg capsule PO SCH ×2 (09:12→20:00)
[2018-06-29] MEDS: magnesium Cl slow-release 64mg tablet PO SCH ×2 (09:12→21:24)
[2018-06-29] MEDS: insulin Lispro (HumaLOG) vial - multi-dose SQ SCH ×3 (09:22→20:13)
[2018-06-29] MEDS: ondansetron/PF 4mg/2ml inj IV PRN ×2 (09:50→20:18)
[2018-06-29] MEDS: acetaminophen 325mg tablet PO PRN ×2 (16:53→22:56)
[2018-06-29] MEDS: citalopram 20mg tablet PO SCH (21:26)
[2018-06-29] MEDS: insulin glargine (Lantus) pen - multi-dose SQ SCH (22:50)
[2018-06-30 02:00] VITALS: BP 125/62
[2018-06-30 06:00] VITALS: BP 156/68
[2018-06-30] MEDS: lactose-reduced food (Ensure High Protein) 237ml bottle PO SCH ×3 (08:00→18:00)
[2018-06-30] MEDS: K and/or MAG REPLACEMENT MC SCH (08:00)
[2018-06-30 08:08] LABS: ALBUMIN 2.5 G/DL (3.4-5.0); ANION GAP 5 (8-16); BLOOD UREA NITROGEN 10 MG/DL (7-18); BUN/CREATININE RATIO 15.9 (6.6-38.0); CALCIUM 8.3 MG/DL (8.5-10.1); CHLORIDE 104 MMOL/L (99-107); CREATININE 0.63 MG/DL (0.40-0.90); GLUCOSE 170 MG/DL (70-104); MAGNESIUM 1.9 MG/DL (1.5-2.4); SODIUM 140 MMOL/L (135-145); TOTAL CARBON DIOXIDE 31.2 MMOL/L (24-32); eGFR > 90 ML/MIN
[2018-06-30 08:26] LABS: BASOPHILS % (AUTO) 0.3 % (0-1); EOSINOPHILS # (AUTO) 0.3 X10'3 (0-0.9); HEMATOCRIT 22.8 % (35.0-45.0); HEMOGLOBIN 7.7 g/dl (12.0-16.0); LYMPHOCYTES # (AUTO) 1.8 X10'3 (1.1-4.8); LYMPHOCYTES % (AUTO) 26.2 % (21-51); MEAN CORPUSCULAR HEMOGLOBIN 30.3 PG (27.0-31.0); MEAN CORPUSCULAR HGB CONC 33.8 % (33.0-36.5); MEAN CORPUSCULAR VOLUME 89.7 FL (78-98); MEAN PLATELET VOLUME 8.6 FL (7.4-10.4); MONOCYTES # (AUTO) 0.6 X10'3 (0-0.9); MONOCYTES % (AUTO) 8.3 % (2-12); NEUTROPHILS # (AUTO) 4.2 X10'3 (1.8-7.7); NEUTROPHILS % (AUTO) 61.2 % (42-75); PLATELET COUNT 179 X10'3 (140-440); RED BLOOD COUNT 2.55 X10'6 (4.20-5.60); RED CELL DISTRIBUTION WIDTH 13.7 % (11.5-14.5); WHITE BLOOD COUNT 6.9 X10'3 (4.5-11.0)
[2018-06-30] MEDS: atorvastatin 20mg tablet PO SCH (08:27)
[2018-06-30] MEDS: aspirin 81mg tablet.DR PO SCH (08:27)
[2018-06-30] MEDS: potassium Cl 20 mEq SR tablet PO SCH ×2 (08:27→20:00)
[2018-06-30] MEDS: docusate sod 100mg capsule PO SCH ×2 (08:27→20:22)
[2018-06-30] MEDS: magnesium Cl slow-release 64mg tablet PO SCH ×2 (08:28→20:21)
[2018-06-30] MEDS: carVEDilol 3.125mg tablet PO SCH ×2 (08:28→20:22)
[2018-06-30] MEDS: levoTHYROXINE 75mcg tablet PO SCH (08:28)
[2018-06-30] MEDS: pantoprazole 40mg Tablet.DR PO SCH (08:28)
[2018-06-30] MEDS: HYDROcodone/acetaminophen 10/325mg tab PO PRN ×2 (08:28→20:22)
[2018-06-30] MEDS: ondansetron/PF 4mg/2ml inj IV PRN ×2 (08:28→20:27)
[2018-06-30] MEDS: Protein Smoothie (high protein) 240ml (8oz) cup PO SCH ×3 (08:29→18:00)
[2018-06-30] MEDS: insulin Lispro (HumaLOG) vial - multi-dose SQ SCH ×2 (09:42→13:12)
[2018-06-30 11:00] VITALS: BP 124/54
[2018-06-30] MEDS: acetaminophen 325mg tablet PO PRN (13:13)
[2018-06-30 15:00] VITALS: BP 116/53
[2018-06-30] MEDS ORDERED: benzocaine/menthol oral lozeng 1 EACH BOX MM PRN (17:15)
[2018-06-30 18:00] VITALS: BP 132/55
[2018-06-30] MEDS: citalopram 20mg tablet PO SCH (20:27)
[2018-06-30] MEDS: insulin glargine (Lantus) pen - multi-dose SQ SCH (21:02)
[2018-06-30 22:00] VITALS: BP 112/52
[2018-07-01 02:00] VITALS: BP 111/56
[2018-07-01] MEDS: ondansetron/PF 4mg/2ml inj IV PRN (05:16)
[2018-07-01] MEDS: acetaminophen 325mg tablet PO PRN ×2 (05:17→16:49)
[2018-07-01 06:00] VITALS: BP 109/54
[2018-07-01 06:50] LABS: BASOPHILS % (AUTO) 0.2 % (0-1); EOSINOPHILS # (AUTO) 0.3 X10'3 (0-0.9); EOSINOPHILS % (AUTO) 5.3 % (0-6); HEMATOCRIT 23.2 % (35.0-45.0); HEMOGLOBIN 7.7 g/dl (12.0-16.0); LYMPHOCYTES # (AUTO) 1.2 X10'3 (1.1-4.8); LYMPHOCYTES % (AUTO) 19.5 % (21-51); MEAN CORPUSCULAR HEMOGLOBIN 30.1 PG (27.0-31.0); MEAN CORPUSCULAR HGB CONC 33.1 % (33.0-36.5); MONOCYTES # (AUTO) 0.6 X10'3 (0-0.9); MONOCYTES % (AUTO) 8.7 % (2-12); NEUTROPHILS # (AUTO) 4.2 X10'3 (1.8-7.7); NEUTROPHILS % (AUTO) 66.3 % (42-75); PLATELET COUNT 210 X10'3 (140-440); RED BLOOD COUNT 2.55 X10'6 (4.20-5.60); RED CELL DISTRIBUTION WIDTH 14.3 % (11.5-14.5); WHITE BLOOD COUNT 6.4 X10'3 (4.5-11.0)
[2018-07-01 07:19] LABS: ALBUMIN 2.3 G/DL (3.4-5.0); ANION GAP 6 (8-16); BLOOD UREA NITROGEN 9 MG/DL (7-18); BUN/CREATININE RATIO 12.5 (6.6-38.0); CALCIUM 8.2 MG/DL (8.5-10.1); CHLORIDE 104 MMOL/L (99-107); CREATININE 0.72 MG/DL (0.40-0.90); GLUCOSE 155 MG/DL (70-104); SODIUM 141 MMOL/L (135-145); TOTAL CARBON DIOXIDE 31.2 MMOL/L (24-32); eGFR 81 ML/MIN
[2018-07-01] MEDS: lactose-reduced food (Ensure High Protein) 237ml bottle PO SCH ×2 (08:00→13:00)
[2018-07-01] MEDS: K and/or MAG REPLACEMENT MC SCH (08:00)
[2018-07-01] MEDS: Protein Smoothie (high protein) 240ml (8oz) cup PO SCH ×2 (08:00→13:00)
[2018-07-01] MEDS: citalopram 20mg tablet PO SCH (08:00)
[2018-07-01] MEDS: magnesium Cl slow-release 64mg tablet PO SCH (08:00)
[2018-07-01] MEDS: potassium Cl 20 mEq SR tablet PO SCH (08:45)
[2018-07-01] MEDS: levoTHYROXINE 75mcg tablet PO SCH (08:46)
[2018-07-01] MEDS: docusate sod 100mg capsule PO SCH (08:46)
[2018-07-01] MEDS: atorvastatin 20mg tablet PO SCH (08:46)
[2018-07-01] MEDS: carVEDilol 3.125mg tablet PO SCH (08:47)
[2018-07-01] MEDS: aspirin 81mg tablet.DR PO SCH (08:47)
[2018-07-01] MEDS: pantoprazole 40mg Tablet.DR PO SCH (09:03)
[2018-07-01] MEDS: insulin Lispro (HumaLOG) vial - multi-dose SQ SCH (09:09)
[2018-07-01 11:00] VITALS: BP 109/54
[2018-07-01] MEDS: HYDROcodone/acetaminophen 10/325mg tab PO PRN (12:29)
[2018-07-01 15:00] VITALS: BP 118/59
== END 2018-07-01 17:15 | DRG 234 ==
LOC: SSTAY O 05:31 → PCU 3S 17:01 → ICU 2S 06-25 09:45 → PCU 3S 06-29 08:05
PROVIDERS: ADMIT Thoracic Surgery (Cardiothoracic Vascular Surgery); ATTEND Thoracic Surgery (Cardiothoracic Vascular Surgery)
PROC: 4A023N7 Measurement of Cardiac Sampling and Pressure, Left Heart, Percutaneous Approach (ICD-10-PCS; 2018-06-24)
PROC: B2111ZZ Fluoroscopy of Multiple Coronary Arteries using Low Osmolar Contrast (ICD-10-PCS; 2018-06-24)
PROC: B2151ZZ Fluoroscopy of Left Heart using Low Osmolar Contrast (ICD-10-PCS; 2018-06-24)
PROC: 021009W Bypass Coronary Artery, One Artery from Aorta with Autologous Venous Tissue, Open Approach (ICD-10-PCS; 2018-06-25)
PROC: 06BQ4ZZ Excision of Left Saphenous Vein, Percutaneous Endoscopic Approach (ICD-10-PCS; 2018-06-25)
PROC: 06BP4ZZ Excision of Right Saphenous Vein, Percutaneous Endoscopic Approach (ICD-10-PCS; 2018-06-25)
PROC: B24BZZ4 Ultrasonography of Heart with Aorta, Transesophageal (ICD-10-PCS; 2018-06-25)
PROC: 5A1221Z Performance of Cardiac Output, Continuous (ICD-10-PCS; 2018-06-25)
PROC: 30233M1 Transfusion of Nonautologous Plasma Cryoprecipitate into Peripheral Vein, Percutaneous Approach (ICD-10-PCS; 2018-06-25)
PROC: B24BZZ4 Ultrasonography of Heart with Aorta, Transesophageal (ICD-10-PCS; 2018-06-25)
PROC: 02HV33Z Insertion of Infusion Device into Superior Vena Cava, Percutaneous Approach (ICD-10-PCS; 2018-06-25)
PROC: 4A133B3 Monitoring of Arterial Pressure, Pulmonary, Percutaneous Approach (ICD-10-PCS; 2018-06-25)
PROC: 02HP32Z Insertion of Monitoring Device into Pulmonary Trunk, Percutaneous Approach (ICD-10-PCS; 2018-06-25)
PROC: 02100Z9 Bypass Coronary Artery, One Artery from Left Internal Mammary, Open Approach (ICD-10-PCS; principal; 2018-06-25 06:50)
PROC: 30233N1 Transfusion of Nonautologous Red Blood Cells into Peripheral Vein, Percutaneous Approach (ICD-10-PCS; 2018-06-27)
DX: I25.118 Atherosclerotic heart disease of native coronary artery with other forms of angina pectoris (principal); D68.9 Coagulation defect, unspecified; R04.89 Hemorrhage from other sites in respiratory passages; E03.9 Hypothyroidism, unspecified; E11.51 Type 2 diabetes mellitus with diabetic peripheral angiopathy without gangrene; E78.00 Pure hypercholesterolemia, unspecified; F41.9 Anxiety disorder, unspecified; I10 Essential (primary) hypertension; I67.9 Cerebrovascular disease, unspecified; I70.1 Atherosclerosis of renal artery; I65.23 Occlusion and stenosis of bilateral carotid arteries; Z79.899 Other long term (current) drug therapy; Z88.6 Allergy status to analgesic agent; Z88.8 Allergy status to other drugs, medicaments and biological substances; Z90.49 Acquired absence of other specified parts of digestive tract; Z79.82 Long term (current) use of aspirin; Z79.01 Long term (current) use of anticoagulants; Z79.890 Hormone replacement therapy; Z79.84 Long term (current) use of oral hypoglycemic drugs; Y92.89 Other specified places as the place of occurrence of the external cause
CPT/HCPCS: 0232T; 93312; 93325; 93458; Z7506; Z7508; 36415; 36600; 71045; 71046; 80048; 80053; 81003; 82330; 82435; 82803; 82947; 82948; 83036; 83735; 84100; 84132; 84295; 84443; 85018; 85025; 85027; 85347; 85384; 85576; 85610; 85730; 86885; 86900; 86901; 86920; 87070; 93005; 93880; 93971; 94002; 94003; 94010; 94668; 94760; 97110; 97116; 97162; 97530; 99152; 99153; A4620; A6255; A6257; A6258; A6402; A6449; A7000; A7048; C1751; C1769; C9113; G0378; J0690; J1644; J1815; J1940; J2001; J2060; J2150; J2250; J2270; J2370; J2405; J2440; J2597; J2930; J3010; J3370; J3475; J3480; J3490; J7030; J7060; J7120; P9012; P9016; P9045; P9047; Q0163; Q9967

== ENCOUNTER 2021-06-21 10:43 | Day surgery (SDC) | payer MEDICARE ==
[2021-06-16 13:23] LABS: BASOPHILS % (AUTO) 0.5 % (0-1); EOSINOPHILS # (AUTO) 0.2 X10'3 (0-0.9); EOSINOPHILS % (AUTO) 4.5 % (0-6); HEMATOCRIT 42.5 % (35.0-45.0); HEMOGLOBIN 14.4 g/dl (12.0-16.0); LYMPHOCYTES # (AUTO) 1.9 X10'3 (1.1-4.8); LYMPHOCYTES % (AUTO) 36.2 % (21-51); MEAN CORPUSCULAR HEMOGLOBIN 31.1 PG (27.0-31.0); MEAN CORPUSCULAR VOLUME 91.4 FL (78-98); MEAN PLATELET VOLUME 8.1 FL (7.4-10.4); MONOCYTES # (AUTO) 0.5 X10'3 (0-0.9); MONOCYTES % (AUTO) 8.7 % (2-12); NEUTROPHILS # (AUTO) 2.7 X10'3 (1.8-7.7); NEUTROPHILS % (AUTO) 50.1 % (42-75); PLATELET COUNT 214 X10'3 (140-440); RED BLOOD COUNT 4.65 X10'6 (4.20-5.60); RED CELL DISTRIBUTION WIDTH 14.4 % (11.5-14.5); WHITE BLOOD COUNT 5.3 X10'3 (4.5-11.0)
[2021-06-16 13:30] LABS: ALBUMIN 3.4 G/DL (3.4-5.0); ANION GAP 8 (8-16); BLOOD UREA NITROGEN 20 MG/DL (7-18); BUN/CREATININE RATIO 24.7 (6.6-38.0); CALCIUM 8.8 MG/DL (8.5-10.1); CHLORIDE 103 MMOL/L (99-107); CREATININE 0.81 MG/DL (0.40-0.90); GLUCOSE 249 MG/DL (70-104); POTASSIUM 4.3 MMOL/L (3.5-5.1); SODIUM 141 MMOL/L (135-145); eGFR 70 ML/MIN
[2021-06-16 13:34] LABS: PARTIAL THROMBOPLASTIN TIME 24 SECONDS (22-32)
[2021-06-21] VITALS (10 sets, daily range): BP systolic 128–140; BP diastolic 58–72
[~2021-06-21] VITALS: Ht 175.3 cm; Wt 78.7 kg
[~2021-06-21 10:43] MED LIST: ALPR-624 PO; ASPI-1265 PO; BIOT1TAB7 PO; CARV3.122 PO; CITA20TA19 PO; CLOP75TA15 PO; CYAN500T71 PO; FURO-150 PO; GLIP5TAB26 PO; INSU100V12 SQ; LEVO75TA PO; NITR0.4T51 SL; OMEG1CAP2 PO; ROSU40TA PO
[2021-06-21] MEDS ORDERED: NOVLG SQ (11:27)
[2021-06-21] MEDS ORDERED: diphenhydrAMINE 25mg capsule PO PRN (11:35)
[2021-06-21] MEDS ORDERED: LORazepam 0.5 MG tablet PO PRN (11:35)
[2021-06-21] MEDS ORDERED: normal saline 1,000 ML IV SCH (11:35)
[2021-06-21] MEDS ORDERED: heparin 1,000unit/ml 10ml vial 10 ML ONE (11:55)
[2021-06-21] MEDS ORDERED: nitroGLYCERIN-Tridil 50MG/D5W 250 ML IV ONE (11:55)
[2021-06-21] MEDS ORDERED: fentaNYL/PF 50MCG/1 ML 2ML syringe ONE (11:55)
[2021-06-21] MEDS ORDERED: iohexol 350 MG/1 ML 200ml bottle ONE (11:55)
[2021-06-21] MEDS ORDERED: midazolam 1 mg/ML 2ml injection ONE (11:55)
[2021-06-21] MEDS ORDERED: LIDOcaine 1% (10mg/ml)w/preservative injection 20ml MDV ONE (11:55)
[2021-06-21] MEDS ORDERED: proCHLORperazine 10 MG/2 ml inj IV PRN (14:15)
[2021-06-21] MEDS ORDERED: OXAZEpam 15mg capsule PO PRN (14:15)
[2021-06-21] MEDS ORDERED: ondansetron/PF 4mg/2ml inj IV PRN (14:15)
[2021-06-21] MEDS ORDERED: HYDROcodone/acetaminophen 10/325mg tab PO PRN (14:15)
[2021-06-21] MEDS ORDERED: HYDROcodone/acetaminophen 5mg/325mg tablet PO PRN (14:15)
== END 2021-06-21 16:55 | disposition home or self-care (01) ==
LOC: SSTAY O 10:43
PROVIDERS: ATTEND Internal Medicine Interventional Cardiology
DX: R07.2 Precordial pain (principal); I25.118 Atherosclerotic heart disease of native coronary artery with other forms of angina pectoris; T82.856A Stenosis of peripheral vascular stent, initial encounter; I10 Essential (primary) hypertension; E11.9 Type 2 diabetes mellitus without complications; I25.2 Old myocardial infarction; E78.5 Hyperlipidemia, unspecified; I65.29 Occlusion and stenosis of unspecified carotid artery; Z79.82 Long term (current) use of aspirin; Z79.899 Other long term (current) drug therapy; Z88.8 Allergy status to other drugs, medicaments and biological substances; Z88.5 Allergy status to narcotic agent; Y83.8 Other surgical procedures as the cause of abnormal reaction of the patient, or of later complication, without mention of misadventure at the time of the procedure; Y92.89 Other specified places as the place of occurrence of the external cause
CPT/HCPCS: 36252; 36415; 80048; 82948; 85025; 85610; 85730; 93005; 93459; 99152; C1769; J1644; J2001; J2250; J3010; J7030; Q0163; Q9967; 99153; A4620; A6258; J3490

== ENCOUNTER 2022-01-06 08:40 | Emergency (ER) | payer MEDICARE ==
[~2022-01-06] VITALS: Ht 171.4 cm; Wt 77.0 kg
[~2022-01-06 08:40] MED LIST changes: -ALPR-624 PO; -CLOP75TA15 PO; -FURO-150 PO; -GLIP5TAB26 PO; -NITR0.4T51 SL; +NOVLG SQ; -OMEG1CAP2 PO
[2022-01-06 10:12] LABS: BASOPHILS % (AUTO) 0.2 % (0-1); EOSINOPHILS # (AUTO) 0.2 X10'3 (0-0.9); EOSINOPHILS % (AUTO) 6.9 % (0-6); HEMATOCRIT 36.2 % (35.0-45.0); HEMOGLOBIN 12.1 g/dl (12.0-16.0); LYMPHOCYTES # (AUTO) 1.1 X10'3 (1.1-4.8); LYMPHOCYTES % (AUTO) 30.5 % (21-51); MEAN CORPUSCULAR HEMOGLOBIN 33.3 PG (27.0-31.0); MEAN CORPUSCULAR HGB CONC 33.4 g/dL (33.0-36.5); MEAN CORPUSCULAR VOLUME 99.7 FL (78-98); MEAN PLATELET VOLUME 7.4 FL (7.4-10.4); MONOCYTES # (AUTO) 0.5 X10'3 (0-0.9); NEUTROPHILS # (AUTO) 1.7 X10'3 (1.8-7.7); NEUTROPHILS % (AUTO) 48.4 % (42-75); PLATELET COUNT 146 X10'3 (140-440); RED BLOOD COUNT 3.64 X10'6 (4.20-5.60); RED CELL DISTRIBUTION WIDTH 20.6 % (11.5-14.5); WHITE BLOOD COUNT 3.6 X10'3 (4.5-11.0)
[2022-01-06 10:19] LABS: ALANINE AMINOTRANSFERASE 23 U/L (12-78); ALBUMIN 2.8 G/DL (3.4-5.0); ALBUMIN/GLOBULIN RATIO 0.9 (1.1-1.5); ALKALINE PHOSPHATASE 48 IU/L (46-116); ANION GAP 6 (8-16); ASPARTATE AMINO TRANSFERASE 30 U/L (10-37); BILIRUBIN,TOTAL 0.5 MG/DL (0.1-1.0); BLOOD UREA NITROGEN 8 MG/DL (7-18); BUN/CREATININE RATIO 13.6 (6.6-38.0); CALCIUM 8.3 MG/DL (8.5-10.1); CHLORIDE 108 MMOL/L (99-107); CREATININE 0.59 MG/DL (0.40-0.90); GLUCOSE 105 MG/DL (70-104); POTASSIUM 3.5 MMOL/L (3.5-5.1); SODIUM 143 MMOL/L (135-145); TOTAL CARBON DIOXIDE 28.6 MMOL/L (24-32); TOTAL PROTEIN 5.8 G/DL (6.4-8.2); eGFR > 90 ML/MIN
[2022-01-06 10:24] LABS: D-DIMER 9.16 MG/L FEU (0-0.50)
[2022-01-06] MEDS ORDERED: IOHEXOL 350 MG/ML INFUS..BTL 125ML IV ONE (10:41)
[2022-01-06 10:49] LABS: ANISOCYTOSIS 3+; ELLIPTOCYTES 1+; PLATELET ESTIMATE NORMAL
[2022-01-06 12:58] VITALS: BP 104/55
== END 2022-01-06 13:06 | disposition home or self-care (01) ==
LOC: ER 08:41
DX: R06.02 Shortness of breath (principal); R07.89 Other chest pain; I25.10 Atherosclerotic heart disease of native coronary artery without angina pectoris; R91.1 Solitary pulmonary nodule; I10 Essential (primary) hypertension; Z85.048 Personal history of other malignant neoplasm of rectum, rectosigmoid junction, and anus; Z86.19 Personal history of other infectious and parasitic diseases; Z98.890 Other specified postprocedural states; Z88.5 Allergy status to narcotic agent; Z88.8 Allergy status to other drugs, medicaments and biological substances; Z88.6 Allergy status to analgesic agent; Z79.82 Long term (current) use of aspirin; Z79.4 Long term (current) use of insulin; Z79.899 Other long term (current) drug therapy
CPT/HCPCS: 36415; 71045; 71275; 80053; 83880; 84484; 85008; 85025; 85379; 93005; 93970; 99285; Q9967